=== PATIENT | female | born 1995 | race Caucasian/White ===

== ENCOUNTER → 2016-09-27 | Outpatient (CLI) | payer BC, MEDICAID ==
[~2016-09-27] MED LIST: MOTRIN-DPS800 MG PO; PRENATAL VIT1 TAB PO
== END | disposition home or self-care (01) ==
LOC: RAD.S 08-04 13:00
DX: N63 Unspecified lump in breast (principal)

== ENCOUNTER → 2016-10-10 | Outpatient (CLI) | payer MEDICAID | END | disposition home or self-care (01) | LOC: RAD.S 13:30 | DX: O36.5930 Maternal care for other known or suspected poor fetal growth, third trimester, not applicable or unspecified (principal); Z3A.28 28 weeks gestation of pregnancy ==

== ENCOUNTER 2016-12-04 12:00 | Outpatient (CLI) | payer MEDICAID ==
[2016-12-31] MEDS ORDERED: MOTRIN-DPS800 MG PO (15:28)
[2016-12-31] MEDS ORDERED: PRENATAL VIT1 TAB PO (15:28)
== END 2016-12-04 17:40 | disposition home or self-care (01) ==
LOC: BC 12:00 → 2LDRP 12:00 → BC 17:40
DX: O99.89 Other specified diseases and conditions complicating pregnancy, childbirth and the puerperium (principal); R10.9 Unspecified abdominal pain; Z3A.36 36 weeks gestation of pregnancy

== ENCOUNTER 2016-12-27 22:55 | Inpatient (IN) | payer BC, MEDICAID ==
[~2016-12-27] VITALS: Ht 157.5 cm; Wt 55.3 kg
--- NOTE | ~2016-12-27 | FD ---
ADMIT: 12/28/2016 RM/LOC: 220 [facility] MR#: [id number] [facility] [address] [place] [id number] DAYAMI ELISEORUBA [address] [place] [address] Final Diagnosis SEX: F AGE: 21 : 1995 ADMISSION DATE: 12/28/2016 DISCHARGE DATE: 12/30/2016 FINAL DIAGNOSIS: Term intrauterine with spontaneous rupture of membranes and spontaneous onset of contractions. PROCEDURES: Pitocin augmentation, intrauterine pressure catheter placement, intrathecal anesthesia, and spontaneous controlled vaginal delivery over second-degree midline episiotomy with routine repair with noted maternal fevers with tachycardia following the epidural placement. Please see the hospital record for the details. Jermaine Ferrera MD/ mel JOB #: [id number] CC: Kaiden Ferrera MD, Attending Physician Kaiden Ferrera MD, Family Physician
--- NOTE | ~2016-12-27 | FD ---
ADMIT: 12/28/2016 RM/LOC: 220 [facility] MR#: [id number] [id number] [facility] [address] [place] [id number] DAYAMI GOMESJEFFRUBA [address] [place] [address] Final Diagnosis SEX: F AGE: 21 : 1995 ADMISSION DATE: 12/28/2016 DISCHARGE DATE: 12/30/2016 FINAL DIAGNOSES: 1. Term intrauterine at 39 weeks and 6/7 days. 2. Status post spontaneous vaginal delivery. 3. Second-degree perineal laceration post repair. Bin Ho MD/ evelin JOB #: [id number] CC: Kaiden Ferrera MD, Attending Physician Kaiden Ferrera MD, Family Physician
[2016-12-31] MEDS ORDERED: MOTRIN-DPS800 MG PO (15:28)
[2016-12-31] MEDS ORDERED: PRENATAL VIT1 TAB PO (15:28)
--- NOTE | 2017-01-04 08:16 | OR ---
ADMIT: 12/28/2016 RM/LOC: 220 [facility] MR#: [id number] [address] [facility] [address] [place] [id number] RUBA MORIN [address] [place] [address] Operative/Delivery Room Report SEX: F AGE: 21 : 1995 Correcte: 12/29/2016 1512 [facility] SURGERY DATE: 12/28/2016 SURGEON: Jermaine Ferrera MD CHIEF COMPLAINT: Spontaneous rupture of membranes. HOSPITAL COURSE: The patient is a 21-year-old, single female, 1, para 0, admitted to the [facility] at 39 and 4/7th weeks estimated gestational age with spontaneous rupture of membranes on , around 2200 hours. She is A positive, antibody screen negative, serology negative, hepatitis B surface antigen negative, rubella immune with negative group B strep. She was followed for care by Dr. Kaiden Ferrera and had a fairly benign and unremarkable course. On presentation, they confirmed rupture of membranes with an AmniSure and ultimately Pitocin was added for augmentation. At 0845 hours, she was 6 cm 0 station with a vertex infant. An epidural was in place and the patient was comfortable. tachycardia and maternal fevers were noted in the terminal phases of labor. heart rate was in the 180s with maternal fevers of 101+. Mother started pushing at around 1300 hours. At 1504 hours, she delivered a 7 pounds 12-1/2 ounce viable female in occiput anterior position via spontaneous controlled vaginal delivery over second-degree midline episiotomy. Following delivery, the placenta was delivered intact with a 3-vessel cord. The infant was sat on the mother's abdomen and responded nicely. scores were 6 at 1 minute and 9 at 5 minutes respectively. After the 1 minute , the cord was crossclamped and cut and the infant was transferred to the warmer. Estimated blood loss was 200 mL. Complications were none. The second-degree midline episiotomy was repaired using 2-0 chromic in routine fashion with 9 mL of 1% lidocaine without epinephrine local infiltrative anesthesia. Exam then showed the placenta to be intact with 3-vessel cord. The maternal fevers and tachycardia and tachypnea resolved during the initial post delivery phase. Jermaine Ferrera MD/ evelin JOB #: [id number] CC: Kaiden Ferrera, Attending Physician Kaiden Ferrera, [facility] Physician Correcte: 12/29/2016 1512 mel
== END 2016-12-30 13:30 | disposition home or self-care (01) | DRG 774 ==
LOC: BC 22:55 → 2LDRP 22:55 → BC 12-30 12:30 → 2LDRP 12-30 13:30
PROVIDERS: ADMIT Family Medicine
PROC: 0KQM0ZZ Repair Perineum Muscle, Open Approach (ICD-10-PCS; principal; 2016-12-28)
PROC: 0W8NXZZ Division of Female Perineum, External Approach (ICD-10-PCS; principal; 2016-12-28)
PROC: 10E0XZZ Delivery of Products of Conception, External Approach (ICD-10-PCS; principal; 2016-12-28)
DX: O75.2 Pyrexia during labor, not elsewhere classified (principal); O76 Abnormality in fetal heart rate and rhythm complicating labor and delivery; O70.1 Second degree perineal laceration during delivery; Z3A.39 39 weeks gestation of pregnancy; Z37.0 Single live birth